=== PATIENT | female | born 1975 | race Hispanic/Latino ===

== ENCOUNTER 2023-02-13 20:02 | Inpatient (IN) | payer BC ==
[~2023-02-13] VITALS: Ht 177.8 cm; Wt 80.0 kg
[2023-02-13 20:44] LABS: BASOPHILS # (AUTO) 0.04 K/uL (0.00-0.20); BASOPHILS % (AUTO) 0.4 % (0.0-5.0); EOSINOPHILS # (AUTO) 0.14 K/uL (0.00-0.70); EOSINOPHILS % (AUTO) 1.4 % (0.0-8.0); HEMATOCRIT 40.6 % (36-48); IMMATURE GRANULOCYTE ABSOLUTE 0.03 K/uL (0-1); LYMPHOCYTES # (AUTO) 1.7 K/uL (1.0-4.8); LYMPHOCYTES % (AUTO) 16.5 % (21.0-51.0); MEAN CORPUSCULAR HEMOGLOBIN 31.2 pg (27.0-33.0); MEAN CORPUSCULAR VOLUME 94.4 fL (79-99); MONOCYTES # (AUTO) 1.1 K/uL (0.1-1.0); MONOCYTES % (AUTO) 10.2 % (3.0-13.0); NEUTROPHILS # (AUTO) 7.4 K/uL (1.8-7.7); NEUTROPHILS % (AUTO) 71.2 % (40.0-77.0); PLATELET COUNT (AUTO) 269 K/uL (130-400); RED CELL DISTRIBUTION WIDTH 12.3 % (11.0-15.5); WHITE BLOOD COUNT (AUTO) 10.4 K/uL (4.8-10.8)
[2023-02-13] MEDS ORDERED: ZOSYN 3.375GM+NS 50ML 50 ML IVPB STA (20:59)
[2023-02-13 21:00] LABS: CREATININE 0.9 mg/dL (0.5-1.5); POTASSIUM 3.9 mmol/L (3.5-5.1)
[2023-02-13] MEDS ORDERED: LACTATED RINGERS IV ONE (21:00)
[2023-02-13] MEDS ORDERED: KETOROLAC 15MG/ML VIAL (15MG/ML) IV ONE (21:00)
[2023-02-13] MEDS ORDERED: ACETAMINOPHEN 500 MG TABLET PO ONE (21:00)
[2023-02-13 21:05] LABS: ALBUMIN 2.8 g/dL (3.5-5.0); BILIRUBIN,TOTAL 0.2 mg/dL (0.2-1.0); TOTAL PROTEIN, SERUM 6.4 g/dL (6.0-8.3)
[2023-02-13] MEDS ORDERED: ONDANSETRON 4MG INJ IV PRN (22:00)
[2023-02-13] MEDS ORDERED: MORPHINE 2 MG SYG IV PRN (22:00)
[2023-02-13] MEDS ORDERED: VANCOMYCIN 1G/250ML KIT 250 ML IV SCH (22:00)
[2023-02-13] MEDS ORDERED: ACETAMINOPHEN 325 MG TAB PO PRN (22:00)
[2023-02-13] MEDS ORDERED: MORPHINE 4 MG SYG IV PRN (22:00)
[2023-02-13 22:39] LABS: APPEARANCE,URINE CLEAR (CLEAR); BILIRUBIN,URINE NEGATIVE (NEGATIVE); COLOR,URINE COLORLESS (YELLOW); GLUCOSE, URINE (UA) NEGATIVE (NEGATIVE); KETONES,URINE NEGATIVE (NEGATIVE); LEUKOCYTE ESTERASE ,URINE 25 Leu/uL (NEGATIVE); NITRATE,URINE NEGATIVE (NEGATIVE); OCCULT BLOOD,URINE NEGATIVE (NEGATIVE); PH,URINE 6.5 (5.0-8.0); PROTEIN,URINE NEGATIVE (NEGATIVE); UROBILINOGEN,URINE 0.2 mg/dL (0.2-1.0)
[2023-02-13 22:43] LABS: ADD UA MICROSCOPIC YES
[2023-02-13 22:47] LABS: BACTERIA,URINE RARE /HPF (None Seen); OTHER CASTS, URINE 1 /LPF (None Seen); RBC,URINE 0-1 /HPF (0-1); SQUAMOUS EPITHELIAL CELL,UR RARE /HPF (0-2); WBC,URINE 0-1 /HPF (0-1)
[2023-02-13 23:25] VITALS: BP 128/75; PULSE 62; RESP 18
[2023-02-14 04:00] VITALS: BP 90/53; PULSE 57; RESP 18
[2023-02-14] MEDS: ZOSYN 3.375GM+NS 50ML 50 ML IV SCH ×3 (04:45→20:48)
[2023-02-14 05:55] LABS: BASOPHILS # (AUTO) 0.03 K/uL (0.00-0.20); BASOPHILS % (AUTO) 0.5 % (0.0-5.0); EOSINOPHILS # (AUTO) 0.14 K/uL (0.00-0.70); EOSINOPHILS % (AUTO) 2.1 % (0.0-8.0); HEMATOCRIT 34.8 % (36-48); IMMATURE GRANULOCYTE ABSOLUTE 0.02 K/uL (0-1); LYMPHOCYTES # (AUTO) 1.7 K/uL (1.0-4.8); LYMPHOCYTES % (AUTO) 26.2 % (21.0-51.0); MEAN CORPUSCULAR HEMOGLOBIN 31.8 pg (27.0-33.0); MEAN CORPUSCULAR HGB CONC 32.8 g/dL (32.0-36.0); MEAN CORPUSCULAR VOLUME 96.9 fL (79-99); MONOCYTES # (AUTO) 0.9 K/uL (0.1-1.0); MONOCYTES % (AUTO) 12.9 % (3.0-13.0); NEUTROPHILS # (AUTO) 3.8 K/uL (1.8-7.7); PLATELET COUNT (AUTO) 217 K/uL (130-400); RED BLOOD CELL COUNT(AUTO) 3.59 MIL/uL (4.00-5.50); RED CELL DISTRIBUTION WIDTH 12.2 % (11.0-15.5); WHITE BLOOD COUNT (AUTO) 6.6 K/uL (4.8-10.8)
[2023-02-14 06:03] LABS: INR < 0.93 (0.85-1.15); PROTHROMBIN TIME 10.5 SEC (9.6-11.6)
[2023-02-14 06:04] LABS: PARTIAL THROMBOPLASTIN TIME 30.5 SEC (26.3-35.5)
[2023-02-14 06:24] LABS: CREATININE 0.9 mg/dL (0.5-1.5); MAGNESIUM 1.9 mg/dL (1.80-2.40); PHOSPHORUS 4.6 mg/dL (2.5-4.9); POTASSIUM 3.8 mmol/L (3.5-5.1)
[2023-02-14 08:00] VITALS: BP 114/67; PULSE 65; RESP 18; O2SAT 100
[2023-02-14] MEDS ORDERED: FAMOTIDINE 20MG VIAL IV SCH (09:00)
[2023-02-14] MEDS: FAMOTIDINE 20MG TAB PO SCH ×2 (09:02→20:48)
[2023-02-14] MEDS: ENOXAPARIN SODIUM 40 MG/0.4 ML SYRINGE SQ SCH (09:03)
[2023-02-14 12:00] VITALS: BP 127/75; PULSE 72; RESP 18
[2023-02-14 16:00] VITALS: BP 117/66; PULSE 80; RESP 18
[2023-02-14] MEDS: ACETAMINOPHEN 325 MG TAB PO PRN (16:35)
[2023-02-14 20:00] VITALS: O2SAT 98
[2023-02-14 20:05] VITALS: BP 109/67; PULSE 73; RESP 16
[2023-02-14] MEDS ORDERED: HYDROXYZINE 25 MG TABLET PO ONE (23:10)
[2023-02-15] VITALS: BP 114/77; PULSE 66; RESP 18
[2023-02-15 03:29] VITALS: BP 101/65; PULSE 54; RESP 18
[2023-02-15] MEDS: ZOSYN 3.375GM+NS 50ML 50 ML IV SCH ×3 (05:08→20:24)
[2023-02-15 08:00] VITALS: BP 112/66; PULSE 51; RESP 18; O2SAT 100
[2023-02-15] MEDS: FAMOTIDINE 20MG TAB PO SCH ×2 (08:56→20:25)
[2023-02-15] MEDS: ENOXAPARIN SODIUM 40 MG/0.4 ML SYRINGE SQ SCH (08:57)
[2023-02-15 12:00] VITALS: BP 122/74; PULSE 73; RESP 18
[2023-02-15 16:00] VITALS: BP 131/80; PULSE 67; RESP 18
[2023-02-15 19:00] VITALS: BP 124/62; PULSE 72; RESP 20
[2023-02-15] MEDS: ACETAMINOPHEN 325 MG TAB PO PRN (20:34)
[2023-02-16] VITALS: BP 127/78; PULSE 68; RESP 20
[2023-02-16 03:52] LABS: BASOPHILS # (AUTO) 0.04 K/uL (0.00-0.20); BASOPHILS % (AUTO) 0.5 % (0.0-5.0); EOSINOPHILS # (AUTO) 0.17 K/uL (0.00-0.70); EOSINOPHILS % (AUTO) 2.3 % (0.0-8.0); HEMATOCRIT 39.8 % (36-48); IMMATURE GRANULOCYTE ABSOLUTE 0.03 K/uL (0-1); LYMPHOCYTES # (AUTO) 1.9 K/uL (1.0-4.8); LYMPHOCYTES % (AUTO) 25.7 % (21.0-51.0); MEAN CORPUSCULAR HEMOGLOBIN 31.6 pg (27.0-33.0); MEAN CORPUSCULAR HGB CONC 33.2 g/dL (32.0-36.0); MEAN CORPUSCULAR VOLUME 95.2 fL (79-99); MONOCYTES # (AUTO) 0.8 K/uL (0.1-1.0); MONOCYTES % (AUTO) 10.5 % (3.0-13.0); NEUTROPHILS # (AUTO) 4.5 K/uL (1.8-7.7); NEUTROPHILS % (AUTO) 60.6 % (40.0-77.0); PLATELET COUNT (AUTO) 296 K/uL (130-400); RED BLOOD CELL COUNT(AUTO) 4.18 MIL/uL (4.00-5.50); RED CELL DISTRIBUTION WIDTH 11.9 % (11.0-15.5); WHITE BLOOD COUNT (AUTO) 7.5 K/uL (4.8-10.8)
[2023-02-16 04:00] VITALS: BP 107/56; PULSE 52; RESP 20
[2023-02-16 04:00] LABS: CREATININE 0.9 mg/dL (0.5-1.5); PHOSPHORUS 4.8 mg/dL (2.5-4.9); POTASSIUM 3.8 mmol/L (3.5-5.1)
[2023-02-16] MEDS: ZOSYN 3.375GM+NS 50ML 50 ML IV SCH ×2 (05:38→13:07)
[2023-02-16 08:00] VITALS: BP 110/64; PULSE 63; RESP 17; O2SAT 99
[2023-02-16] MEDS: ENOXAPARIN SODIUM 40 MG/0.4 ML SYRINGE SQ SCH (09:45)
[2023-02-16] MEDS: FAMOTIDINE 20MG TAB PO SCH (09:45)
[2023-02-16 11:30] VITALS: BP 130/69; PULSE 64; RESP 18
== END 2023-02-16 16:10 | disposition home or self-care (01) | DRG 601 ==
LOC: EDH 20:02 → EDHIP 21:47 → 4BH 23:32
PROVIDERS: ADMIT Internal Medicine; ATTEND Internal Medicine
DX: N61.1 Abscess of the breast and nipple (principal); N64.59 Other signs and symptoms in breast; Z87.891 Personal history of nicotine dependence
CPT/HCPCS: 36415; 76642; 80048; 80053; 81001; 83605; 83735; 84100; 84145; 85025; 85610; 85730; 87040; 87070; 87076; G0378; J1650; J1885; J2543; J3370